=== PATIENT | male | born 1990 | race Caucasian/White ===

== ENCOUNTER 2020-12-23 08:10 | Emergency (ER) | payer BC, OTHER ==
--- NOTE | 2020-12-23 09:49 | EDM.PDOC ---
ED HPI GENERAL MEDICAL PROBLEM - General Chief Complaint: Skin Complaint Stated Complaint: ALLERGIC REACTION Time Seen by Provider: 12/23/20 09:30 Source of Information: Reports: Patient - History of Present Illness INITIAL COMMENTS - FREE TEXT/NARRATIVE: Patient is a 30-year-old male presenting to the emergency room with a chief complaint of rash on his hands, feet as well as a sore throat. Patient states he noted the sore throat for a few days but is not having any difficulty swallowing. He has not had any fevers, cough, myalgias, arthralgias, fatigue. Patient states yesterday he noticed his rash started develop on his hands and his feet. He describes the rash as being uncomfortable but is not itchy at all. 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 He has never had a reaction like this before. He has no exposure to any sick contacts. Patient denies any extension of the rash. No rash on the trunk or extremities besides what was noted. States he is not sexually active. No drug use. No recent travel. Feet Pain Score (Numeric/FACES): 9 - Related Data Allergies Allergy/AdvReac Type Severity Reaction Status Date / Time Sulfa (Sulfonamide Allergy Hives Verified 12/23/20 09:11 Antibiotics) Home Meds: Home Meds . [No Known Home Meds] 12/23/20 [History] Past Medical History - Infectious Disease History Infectious Disease History: Reports: Novel Coronavirus - Past Surgical History HEENT Surgical History: Reports: ERIC Social & Family History - Tobacco Use Tobacco Use Status *Q: Never Tobacco User ED ROS GENERAL - Review of Systems Review Of Systems: See Below Free Text/Narrative/Comment: In addition to that documented in the HPI above, the additional ROS was obtained: Constitutional: Denies fevers or chills Eyes: Denies vision changes ENMT: Per HPI CV: Denies chest pain Resp: Denies SOB GI: Denies vomiting or diarrhea : Denies painful urination MSK: Denies recent trauma Skin: Per HPI Neuro: Denies new numbness or tingling or weakness Endocrine: Denies unexpected weight loss Heme: Denies bleeding disorders ED EXAM, SKIN/RASH Exam: See Below Text/Narrative:: I have reviewed the triage vital signs Const: Well nourished, well developed, appears stated age Eyes: Pupils Equal and reactive to light bilaterally, no conjunctival injection HENT: Demonstrates some petechiae in the throat but otherwise no tonsillar swelling or exudates. Uvula is midline. Voice is normal. No ulcerations. No signs of trauma or swelling, Neck supple without meningismus CV: Regular Rate Rhythm, Warm, well-perfused extremities RESP: Unlabored respiratory effort GI: soft, non-tender, non-distended, no masses MSK: No gross deformities appreciated Skin: Warm, dry. Maculopapular rash noticed on the palms primarily with extension into the fingers. No ulcerations noted. Small maculopapular rash noted on feet bilaterally much less than on hands. Otherwise, extremities and trunk are normal. Neuro: Alert, first breaker feeder II-XII grossly intact. Sensation and motor function of extremities grossly intact. Psych: Appropriate mood and affect. Course - Vital Signs Last Recorded V/S: Last Vital Signs Temp 36.2 C 12/23/20 09:06 Pulse 83 12/23/20 09:06 Resp 18 12/23/20 09:06 BP 123/88 12/23/20 09:06 Pulse Ox 100 12/23/20 09:06 Departure - Departure Time of Disposition: 09:47 Disposition: Home, Self-Care 01 Clinical Impression: Coxsackie viral disease - Discharge Information *PRESCRIPTION DRUG MONITORING PROGRAM REVIEWED*: No *COPY OF PRESCRIPTION DRUG MONITORING REPORT IN PATIENT MARITO: No Referrals: PCP,None [Primary Care Provider] - Forms: ED Department Discharge Additional Instructions: This is likely related to a virus. It will resolve on its own. Recommend s upportive care using ibuprofen and Tylenol as needed for pain. If you do develop fevers, body aches or fatigue, you need to stay home and self quarantine and follow-up with a Covid test. If this does not resolve or worsens in the next 1 week to 10 days, you should receive further evaluation for other diseases. Sepsis Event Note (ED) - Focused Exam Vital Signs: Vital Signs Temp Pulse Resp BP Pulse Ox 12/23/20 09:06 36.2 C 83 18 123/88 100 - Assessment/Plan Plan: Patient 30-year-old male presented to the emergency room with a chief complaint of rash and sore throat. Patient had unremarkable ER course. Vital signs appeared stable. Patient was clinically well in appearance. Differential diagnosis considered for this patient include occupational exposure, allergic reaction, viral infection, autoimmune disease, syphilis. at this point, patient's symptoms are clinically significant with viral disease possibly related to coxsackievirus. Recommended supportive care as well as continued mask usage. Will have patient follow-up as an outpatient next 7 to 10 days should symptoms not improved. Return precautions discussed as usual. Patient agrees with plan of care.
== END 2020-12-23 10:10 | disposition home or self-care (01) ==
LOC: JD.ED 08:10
DX: B34.1 Enterovirus infection, unspecified (principal); Z88.2 Allergy status to sulfonamides; Z86.16 Personal history of COVID-19
CPT/HCPCS: 99282